=== PATIENT | female | born 1955 | race Caucasian/White ===

== ENCOUNTER 2025-04-27 13:43 | Outpatient (CLI) | payer MEDICARE, OTHER ==
--- NOTE | 2025-04-28 09:47 | RADIOLOGY REPORT ---
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 Sagittal and coronal reformatted images are provided. COMPARISON: None CT Dose: CTDI volume is 14.4 mGy. Dose-length product is 393.6 mGy*cm FINDINGS: There is open reduction internal fixation of the 1st tarsometatarsal joint with several screws. The o bliquely oriented screw across the proximal metatarsal and medial cuneiform is fractured. There is no evidence of osseous fusion across the 1st tarsometatarsal joint. There are screws across the 2nd and 3rd tarsometatarsal joint and a staple across the 3rd tarsometatarsal joint. The 2nd and 3rd tarsome tatarsal joint hardware is intact. There is about 80% fusion across the 2nd tarsometatarsal joint. Th ere is no osseous fusion achieved across the 3rd tarsometatarsal joint. Mild dorsal spurring across t he midfoot joints. No acute fracture. Acquired pes planus. Lucency in the calcaneus may be related t o sequelae of bone harvest or alternatively may reflect a bone cyst. Mild dorsal soft tissue swellin g in the foot. No significant joint effusion. IMPRESSION: 1. Surgical fixation of the 1st, 2nd and 3rd tarsometatarsal joints. 80% osseous fusion of the 2nd ta rsometatarsal joint. No fusion of the 1st or 3rd tarsometatarsal joints. There is fracture of the sc rew across the 1st tarsometatarsal joint. 2. No acute osseous abnormality. 3. Mild dorsal soft tissue swelling. All CT scans at this medical facility are performed using dose modulation techniques as appropriate t o a performed exam including the following: Automated exposure control was utilized; adjustment of th e MA and/or KV according to patient size; and use of iterative reconstruction technique.
== END 2025-04-27 23:59 | disposition home or self-care (01) ==
LOC: RAD 13:43
PROVIDERS: ATTEND Podiatrist Foot & Ankle Surgery
DX: S92.311D Displaced fracture of first metatarsal bone, right foot, subsequent encounter for fracture with routine healing (principal); M21.6X1 Other acquired deformities of right foot; M19.071 Primary osteoarthritis, right ankle and foot; M20.42 Other hammer toe(s) (acquired), left foot; M20.41 Other hammer toe(s) (acquired), right foot; Z98.890 Other specified postprocedural states; M24.674 Ankylosis, right foot; M79.89 Other specified soft tissue disorders; X58.XXXD Exposure to other specified factors, subsequent encounter
CPT/HCPCS: 73700